=== PATIENT | male | born 1960 | race Caucasian/White ===

== ENCOUNTER → 2024-02-01 12:17 | Outpatient (REF) | payer OTHER, SELFPAY | LOC: RAD 12:17 | PROVIDERS: ATTENDING PHYSICIAN Physician Assistant Medical; FAMILY PHYSICIAN Physician Assistant | DX: M54.16 Radiculopathy, lumbar region (principal) | CPT/HCPCS: 72110 ==

== ENCOUNTER 2024-04-04 12:42 | Emergency (ER) | payer OTHER, SELFPAY ==
[2024-04-04 12:46] VITALS: BP 149/98
--- NOTE | 2024-04-04 13:23 | ED.GENMED ---
History of Present Illness
General
Chief Complaint: Back Pain
Source: patient
Exam Limitations: none
Time Seen by Provider: 04/04/24 13:09
History of Present Illness
History of Present Illness:
See MDM
Past History
Past History
ED Past Medical History: Hypercholesterolemia
ED Past Surgical History: None
Social History
Tobacco: Non-smoker
Alcohol: None
Phy Exam
Physical Exam
Physical Exam:
See MDM
Course
Orders/Labs/Results
Orders:
Orders
04/04/24 13:20
Ketorolac [Toradol] 30 mg IM NOW STA
Oxycodone [Roxicodone] 5 mg PO NOW STA
04/04/24 13:21
CT Abd/pel Without Iv Or Oral Urgent
Comment: Hx colon cancer
Reason For Exam: Left flank pain, low back pain
04/04/24 14:48
HYDROmorphone [Dilaudid] 0.5 mg IM NOW STA
Vital Signs
Initial and Last Documented VS:
Initial Vital Signs
Temp Pulse Resp BP Pulse Ox
97.9 F 98 18 149/98 99
04/04/24 12:46 04/04/24 12:46 04/04/24 12:46 04/04/24 12:46 04/04/24 12:46
Last Documented Vital Signs
Temp Pulse Resp BP Pulse Ox
97.9 F 98 18 149/98 99
04/04/24 12:46 04/04/24 12:46 04/04/24 12:46 04/04/24 12:46 04/04/24 12:46
MDM/Problems Addressed
Differential Diagnosis Includes:
HPI and MDM Narrative:
63-year-old male presenting for evaluation of left lower back pain. It intermittently goes down his leg. He denies any trouble urinating or bowel or bladder issues. He has been dealing with sciatica for the past few months. He saw his primary
care and was placed on Flexeril which seemed to help. Patient states the pain has flared up over the past few days. He ran out of his medicine. at bedside is concerned given his prior history of colon cancer. Will obtain CT to rule out any
evidence of kidney stone pathology or obvious metastasis but the importance of outpatient MRI. Patient has no red flags to suggest spinal cord involvement.
Physical exam
General: Well appearing and non-toxic
HEENT: protecting airway
Neck: appears supple
CV: No evidence of cyanosis
Back: Mild tenderness to left sacroiliac region. No skin changes. Negative straight leg raise
Resp: No accessory muscle use
Abd: Non-distended
Extremities: No deformities. Left extremity neurovascularly intact
Neuro: alert
Psych: Normal affect
Skin: Intact
Problems Addressed including Acute and Chronic Conditions affecting care:
1. Back pain
Acuity: acute
Prognosis: stable
Details: Discussed likely sciatica and outpatient MRI. Will obtain CT to rule out any evidence of kidney stone pathology or possible metastasis. Patient given Toradol and oxycodone
Updates
Patient feeling somewhat better after pain medicine. CT does show concern for a ureteral stone but doubt this is the cause of pain without hydronephrosis. We discussed the incidental pulmonary micronodule and outpatient follow-up. He has
orthopedic appointment on Thursday and understand return precautions
Differential Diagnosis (but not limited to): Sciatica, kidney stone, musculoskeletal pain
Testing considered: Urinalysis but he denies symptoms
Drug therapy (if applicable): OTC meds, please see d/c instruction regarding Rx drugs
Amount and/or Complexity of Data Reviewed
Clinical info obtained from: Patient. at bedside indicates prior history of colon cancer
External data reviewed: N/A
Labs I independently reviewed (but not limited to): N/A
Radiology: The CT scan was personally and independently reviewed. In addition, official CT report reviewed.
Pulse Ox: not hypoxic
EKG independently reviewed: N/A
Apprentice/Lineman: N/A
Critical Care: N/A
Risk of Complication:
Social Determinants of health: Good social support
Discussed with other providers: N/A
Escalation of Care includes Admit/Obs: After being observed in the Emergency Department, pt stable for discharge.
Occasional wrong word or 'sound a like' substitutions may have occurred due to the inherent limitations of voice recognition software. Read the chart carefully and recognize, using context, where substitutions have occurred.
*Critical Care Note
Total Time (30-74mins, 75-104mins- exclusive of procedures): Not Applicable
ED Attending Note
-
Portions of this chart may have been created with voice recognition software.� Occasional wrong word or��sound alike� substitutions may have occurred due to the inherent limitations of voice recognition software.
Discharge Plan
Departure
Patient Disposition: Home (Routine Discharge)
Date of Disposition: 04/04/24
Time of Disposition: 15:18
Patient with high blood pressure during this ER visit?: Yes
Discharge Problem:
Back pain
Instructions: Sciatica (DC), BLOOD PRESSURE
Prescriptions:
New
cyclobenzaprine 10 mg Tablet
10 mg PO TIDPRN PRN (Reason: muscle spasm) Qty: 14 0RF
prednisone 10 mg tablet
See Rx Instructions .ROUTE .COMPLEX Qty: 45 0RF
Rx Instructions:
5 tabs day 1-3, 4 tabs day 4-6, 3 tabs day 7-9, 2 tabs day 10-12, 1 tab day 13-15
diclofenac potassium 50 mg tablet
50 mg PO BID Qty: 20 0RF
oxycodone 5 mg tablet
5 mg PO Q8H PRN (Reason: Pain) Qty: 14 0RF
No Action
alprazolam 0.5 MG tablet
0.5 mg PO PRN PRN (Reason: anxiety)
ibuprofen 200 MG capsule
600 mg PO BID
Patient Comments:
FIRST DOSE TODAY
Referrals:
Barb Beltre PA-C [Family Provider] -
Activity Restrictions/Additional Instructions:
Please return for any worsening symptoms.
You may return at any time if you have further concerns.
Please follow up with your doctor at the first available appointment, preferably this week. Please discuss the CT findings of the small kidney stone and the micronodules in the lung. The radiologist suggested a repeat CT in 6 to 12 months.
Please keep your orthopedic appointment on Thursday.
Thank you for choosing [facility].
Interventions
Interventions:
*Risk Screen - Suicide Last Done: 04/04/24 12:46
*General Assessment Last Done: 04/04/24 12:46
*Neglect/Abuse Screening Last Done: 04/04/24 12:46
*ED COVID-19 Vaccine History Last Done: 04/04/24 12:46
ED-Musculoskeletal Assessment Last Done: 04/04/24 13:09
Discharge Date and Time
Print Language: ARGENT[place]
[2024-04-04] MEDS: TORADOL 30 MG IM (13:52)
[2024-04-04] MEDS: ROXICODONE 5 MG PO (13:52)
[2024-04-04] MEDS: DILAUDID 0.5 MG IM (14:54)
[2024-04-04] MEDS: DECADRON 10 MG PO (15:31)
[2024-04-04 15:43] VITALS: BP 135/91
== END 2024-04-04 15:44 | disposition home or self-care (01) ==
LOC: EMR 12:42
PROVIDERS: EMERGENCY PHYSICIAN Student in an Organized Health Care Education/Training Program; FAMILY PHYSICIAN Physician Assistant
DX: M54.50 Low back pain, unspecified (principal); N20.1 Calculus of ureter; E78.00 Pure hypercholesterolemia, unspecified; Z85.038 Personal history of other malignant neoplasm of large intestine
CPT/HCPCS: 96372; 99284; 74176

== ENCOUNTER → 2024-07-19 09:09 | Outpatient (REF) | payer OTHER, SELFPAY | LOC: RAD 09:09 | PROVIDERS: ATTENDING PHYSICIAN Internal Medicine Hematology & Oncology; FAMILY PHYSICIAN Physician Assistant | DX: R91.1 Solitary pulmonary nodule (principal) | CPT/HCPCS: 71260; Q9967 ==